=== PATIENT | female | born 1985 | race Caucasian/White ===

== ENCOUNTER 2022-02-03 17:42 | Inpatient (IN) | payer MEDICAID, SELFPAY ==
[2022-02-03] VITALS (14 sets, daily range): BP systolic 115–142; BP diastolic 59–82; PULSE 66–98; RESP 16; TEMP 37.2; O2SAT 98
--- NOTE | 2022-02-03 17:22 | P.LDBA_ITS ---
Subjective History of Present Illness Date Seen: 02/03/22 Narrative: Patient is being admitted to Labor and Delivery for early labor with a history of precipitous deliveries. She is a 36 year old at 39.4 weeks gestation. Her full history and physical was dictated by LOLITA Pete on 01/16/2022. Please see this for details. 1.? AMA? Maternity T21: negative, boy.? AFP at 16 weeks: neg ? Level 2 ultrasound: completed 2.? Subchorionic hemorrhage X 2 3. Covid positive 07/31/21. Out of quarantine 08/08/21. ? ? ? 32wk US 12/13/21: Vtx, SDP 6.7cm, EFW 2311 g, 5 lb 2 oz, 90%.? BPD 96%, HC 81%, AC ? 97%, FL 37% ? ? ? 36 week growth US ordered on 12/13/2021: Vtx, SDP 8.7, EFW 3108g 6#14oz, 80%. BPD 85%, HC 84%, AC 94%, FL 19% OB - H&P: Exam Physical Exam: Vital signs: Pulse BP 74 141/68 H 02/03/22 17:04 02/03/22 17:04 Constitutional: Constitutional: no acute distress Routine HEENT Exam: Head: Present normal inspection Routine Neck Exam: Neck: Present full ROM Routine Cardiovascular Exam: Cardiovascular: RRR Routine Abdominal Exam: Abdominal: Present soft Detailed Labor and Delivery Exam: Patient Gravid: yes Dilation (cm): 3 Effacement (%): 75 Cervix position: mid Consistency: soft Contraction frequency (min): 3 (2-3) Tachysystole: No Contraction intensity: Strong/Firm Fetus (Single): Station: -3 Heart Rate Baseline: 135 Monitor Accelerations: Present Monitor Decelerations: None Community [employer] Actor Variability: Moderate (11-25) (6-25) Routine Extremities Exam: Extremities: Present full ROM Routine Back/Spine/Pelvis Exam: Back/Spine: full ROM Routine Neurological Exam: Present alert and oriented X3 Routine Psychiatric Exam: Present normal affect and normal thought process OB - Problem Based A/P Additional Plan (1) Active labor at term: Status: Acute Plan ASSESSMENT:? at 39.4 weeks gestation? GBS negative? Uncomplicated ? Elevated BP on admit. Repeat BP WNL? Early labor at term ?? PLAN:? 1. Desires water . Consent signed. Hep C negative.? 2. Candidate for analgesia of choice. Planning unmedicated .? 3. Continue to monitor blood pressures. 4. Anticipate ? 5. Expectant management at this time.? 6. IV not needed at this time. OK to place PRN. 7. Monitoring per unit policy. Delivery/Labor/Induction Plan Plan: expectant management
[2022-02-03] MEDS: OXYTOCIN 10 UNIT/ML INJ IM (18:18)
[2022-02-03] MEDS: miSOPROStoL 800 MCG/4 TABLET PR (18:49)
[2022-02-03 19:10] LABS: SARS PCR* Negative SARS-CoV-2 (Negative)
[2022-02-03] MEDS: LIDOCAINE 1 % PF 30 ML INJECTION (19:30)
--- NOTE | 2022-02-03 19:56 | P.OBPRC_ITS ---
Procedure Delivery date: 02/03/22 Procedure Done: Global Events: Meconium Stained Fluid (light meconium) and AMA Intrapartal Events: Precipitous Labor <3 Hrs Delivery monitor: external FHT and external uterine Route of delivery: Episiotomy description: None Laceration description: Perineal - 2nd Degree Delivery repair: Vicryl Estimated blood loss (mL): 75 Anesthesia type: None Disposition: floor Narrative: Patient is a 36 year-old G3 now P3 admitted on Dec 30, 2021 at 23:40 at 39 Weeks, 4 Days gestation for early labor.? Cervical exam on admission was 3 cm/75 % effaced/-3 station with membranes intact in vertex presentation.? Contractions were every 2-3 minutes.? heart rate demonstrated baseline 135 bpm with moderate variability, + accelerations, - decelerations; a category 1 tracing.? SROM occurred at 1739 with light meconium fluid.?Pediatric provider was notified of meconium fluid but did not make it to the hospital in time for the delivery. ?? Labor Analgesia:? None? ?? Pitocin:? Yes IM injection after delivery only? ?? Labor onset:? 1650? ?? Complete:? 1800? ?? Pushing:? 1802? ?? heart tones during second stage were category 1.? ?? At 1810 a viable male infant delivered in vertex presentation over intact perineum via spontaneous vaginal delivery.? Infant was placed on maternal abdomen.? Cord was clamped and cut after a >5min delay.? Nose and mouth were bulb suctioned.? Infant weight pending.? 8 at 1 minute and 9 at 5 minutes.? Shoulder dystocia: no.? Nuchal cord: no.? ?? Placenta delivered spontaneously and complete at 1914 with a 3 vessel cord.?At [address] Sung was notified that the placenta was not delivered. She ordered for placement of 800 mg rectal Cytotec and if still not delivered by 1910 she would come evaluate. Placenta did delivery spontaneously with trailing membranes. Placenta and membranes appear intact and felt to have come completely. ?? Mother and infant were stable after delivery.? ?? Lacerations:? 2nd degree, repaired with 2.0 Vicryl.? ?? Blood loss: 75 mL.? Blood loss measurement type: QBL 50ml in drape and EBL 25ml in the tub? Sponge and needles counts are correct.? [place] Gender: Male presentation: vertex Placental Delivery Description: Spontaneous (Over 1 jefferson for placenta delivery but delivered spontaneously) Cord Description: 3 Vessels total score - 1 minute: 8 total score - 5 minute: 9 OB Vag Delivery Procedures Additional Procedures Laceration Repair: Yes
[2022-02-04 00:28] VITALS: BP 109/73; PULSE 86; RESP 16; TEMP 37.2; O2SAT 96
[2022-02-04 02:24] VITALS: BMI 32.7
[2022-02-04 04:16] VITALS: BP 104/70; PULSE 85; RESP 16; TEMP 36.9; O2SAT 96
[2022-02-04 07:57] VITALS: BP 111/72; PULSE 94; RESP 16; TEMP 36.7; O2SAT 96
--- NOTE | 2022-02-04 12:10 | PM.OBDSVD1 ---
DS: Providers Provider Date Seen: 02/04/22 Date of admission: 02/03/22 17:42 Primary care physician: Not a Local Provider Admitting Clinician: Jennifer Salcedo CNM Attending Physician on discharge: Nancy Mulligan CNM Date of Discharge: 02/04/22 DS: Diagnosis Discharge Diagnosis (1) Status post vaginal delivery: Status: Acute Exam Const: Vital Signs, click to edit/add: Vital Signs - 24 hr 02/03/22 17:04 02/03/22 17:33 02/03/22 18:57 Temperature Pulse Rate 74 66 75 Pulse Rate [Pulse Oximeter] Respiratory Rate Blood Pressure 141/68 H 124/80 140/79 H Blood Pressure [Le ft Arm] Pulse Oximetry Oxygen Delivery [facility] 02/03/22 19:12 02/03/22 19:27 02/03/22 19:42 Temperature Pulse Rate 74 74 77 Pulse Rate [Pulse Oximeter] Respiratory Rate Blood Pressure 124/66 132/71 142/82 H Blood Pressure [Le ft Arm] Pulse Oximetry Oxygen Delivery [facility] 02/03/22 19:57 02/03/22 20:13 02/03/22 20:27 Temperature Pulse Rate 81 92 78 Pulse Rate [Pulse Oximeter] Respiratory Rate Blood Pressure 131/61 128/59 L 135/60 Blood Pressure [Le ft Arm] Pulse Oximetry Oxygen Delivery [facility] 02/03/22 20:42 02/03/22 20:44 02/03/22 20:57 Temperature Pulse Rate 81 98 Pulse Rate [Pulse Oximeter] Respiratory Rate Blood Pressure 134/60 115/62 Blood Pressure [Le ft Arm] Pulse Oximetry 98 Oxygen Delivery [facility] 02/03/22 21:12 02/03/22 19:42 02/03/22 20:42 Temperature Pulse Rate Pulse Rate [Pulse Oximeter] Respiratory Rate 16 16 Blood Pressure 129/78 Blood Pressure [Le ft Arm] Pulse Oximetry Oxygen Delivery [facility] 02/03/22 19:27 02/03/22 19:57 02/03/22 20:12 Temperature 98.9 F Pulse Rate Pulse Rate [Pulse Oximeter] Respiratory Rate 16 16 16 Blood Pressure Blood Pressure [Le ft Arm] Pulse Oximetry Oxygen Delivery [facility] 02/03/22 20:27 02/03/22 21:12 02/03/22 20:57 Temperature Pulse Rate Pulse Rate [Pulse Oximeter] Respiratory Rate 16 16 16 Blood Pressure Blood Pressure [Le ft Arm] Pulse Oximetry Oxygen Delivery Me thod 02/04/22 00:28 02/04/22 04:16 02/04/22 07:57 Temperature 98.9 F 98.5 F 98.1 F Pulse Rate Pulse Rate [Pulse Oximeter] 86 85 94 Respiratory Rate 16 16 16 Blood Pressure Blood Pressure [Le ft Arm] 109/73 104/70 111/72 Pulse Oximetry 96 96 96 Oxygen Delivery Me thod Room Air Room Air Room Air Documenting provider has reviewed patient's vital signs: yes Common normals: no apparent distress, oriented x3, no limitations, healthy appearing, alert and well nourished HENMT: Common normals: normocephalic Head and scalp: normocephalic Eye: Common normals: PERRL and EOMs intact bilaterally Pupil: PERRL Neck & C-Spine: Common normals: full ROM and supple Chest: Common normals: inspection of chest normal Other: Breast exam: deferred Resp: Common normals: normal respiratory effort, no retractions and clear to auscultation bilaterally Auscultation: clear to auscultation bilaterally Cardio: Common normals: regular rate and regular rhythm Rate: regular rate Rhythm: regular rhythm GI: Common normals: Normal to inspection, nondistended, normoactive bowel sounds present, soft to palpation and non-tender Palpation: soft : Uterus: U/1 Lochia: small Back & Pelvis: Common normals: thoracic and lumbar spine normal to inspection and thoraco-lumbar ROM normal Extremity: Common normals: normal to inspection and full ROM Neuro: Common normals: oriented x3, moves all extremities and gait normal Sensorium/orientation: alert Psych: Common normals: mental status grossly normal, affect normal, speech normal and activity/motor behavior normal Speech: normal speech Skin: Common normals: no rashes or lesions noted General skin exam: no rashes or lesions noted OB - DS: Summary Hospital Course Hospital Course: The patient is a 36 year old G 3 P 3 at 39 5/7 weeks gestation that was admitted to the Center on 02/03/22 for spontaneous labor. She had an uncomplicated vaginal delivery. She delivered a viable male infant. She is breast feeding. the patient has done well. Peripartum Data Infant delivery method: Vaginal Laceration description: Perineal - 2nd Degree complications: none Infant Gender: Male Time Spent with Patient Time attestation: Total time spent providing and/or coordinating discharge services: Discharge Plan Discharge Disposition: Home, Self-Care Date of Admission: 02/03/22 17:42 Attending Provider on Discharge: Nancy Mulligan Primary Care Provider: Provider,Not a Local Condition: Stable Anticipated Discharge Date/Time: 02/04/22 19:30 Discharge Medications: New acetaminophen 500 mg Tablet 1,000 mg PO Q6H PRNQty: 0 0RF docusate sodium 100 mg Capsule 100 mg PO DAILY Qty: 90 0RF ibuprofen 600 mg Tablet 600 mg PO Q6H PRNQty: 60 0RF Lanolin (HPA) 100 % Cream 1 applic topical Q1H PRNQty: 0 0RF Continued docosahexaenoic acid 200 mg capsule 200 cap PO DAILY prenat.vits,nicki,dev-joyd-vldxj Tablet 1 tab PO QDAY Discharge Orders: Discharge Order (Routine); Ordered 02/04/22 Ordered By: Nancy Mulligan Patient Education: OB Vaginal/Breast Feeding Activity Restrictions/Additional Instructions: Discharge instructions were reviewed with the patient including signs and symptoms of infection and home going medications. Lifting Restrictions: n/a Off Work or School for 6 weeks. Symptoms to report to doctor: -Bleeding that saturates more than one pad per hour ?-Passing clots larger than the size of a golf ball ?-Pain not relieved by prescribed medication ?-Fever above 100.4 degrees Fahrenheit ?-A foul vaginal odor ?-Difficulty in emotions, mood and functions ?-Thoughts of hurting yourself and/or ?-Painful, reddened area in your breast ?-Any drainage, redness or tenderness in your IV/epidural site ?-Severe headache that doesn't improve after taking medications ?-Changes in vision, including temporary loss of vision, blurred vision, and/or light sensitivity ?-Upper abdominal pain (usually under ribs on the right side) ?-Decrease in urination or painful, frequent urinating ?-Chest pain ?-Shortness of breath ?-Tenderness or pain with redness and/swelling in the calf(s) of your leg Follow Up with [facility] in 2 and 6 weeks . consultation services are available to all mothers and babies for the first year after delivery.? To make an appointment, please call [phone]. Activity Level: No Restrictions Follow Up Appointments: [facility] [Provider Group] (2 and 6 weeks ) Forms: [employer] Info Instructions
[2022-02-04 12:50] VITALS: BP 109/70; PULSE 79; RESP 16; TEMP 36.6; O2SAT 96
[2022-02-04 16:09] VITALS: BP 114/80; PULSE 80; RESP 14; TEMP 36.7
[2022-02-04] MEDS: TETANUS/DIPHTH/PERTUSSIS 0.5 ML SYRINGE IM (20:13)
== END 2022-02-04 21:35 | disposition home or self-care (01) | DRG 807 ==
LOC: OB OUT 17:43 → OB 17:43
PROVIDERS: Admitting Provider Advanced Practice Midwife; Visit Provider Advanced Practice Midwife
DX: O77.0 Labor and delivery complicated by meconium in amniotic fluid (principal); Z37.0 Single live birth; O70.1 Second degree perineal laceration during delivery; Z86.16 Personal history of COVID-19; Z3A.39 39 weeks gestation of pregnancy
CPT/HCPCS: 36415; 85018; 87635; 88307; 90715; A9270; J2001; J2590

== ENCOUNTER 2022-02-17 16:22 | Outpatient (CLI) | payer MEDICAID, SELFPAY | END 2022-02-17 16:23 | disposition home or self-care (01) | LOC: NFLDREF 02-21 13:36 | PROVIDERS: Visit Provider Advanced Practice Midwife | DX: Z39.2 Encounter for routine postpartum follow-up (principal) | CPT/HCPCS: 87086 ==

== ENCOUNTER 2023-08-31 10:46 | Outpatient (CLI) | payer MEDICAID, SELFPAY ==
--- NOTE | 2023-08-31 11:00 | US_ITS ---
Patient: RENATO PAREKH Facility:?[facility] Patient ID:?[id number] Site Patient ID:?[id number]. Site :?[id number] Study:?US-OB Pelvis OB TV-08/31/2023 11:53:44 AM Ordering Physician:?VARUN NIÑO Final Report: INDICATION: First trimester scan, establish dates. COMPARISON: None. TECHNIQUE: Real-time marquez-scale imaging of the pelvis was performed. FINDINGS: Sonographic imaging demonstrates a single living intrauterine gestation. The embryo demonstrates a regular cardiac rate measuring 121 beats per minute. The embryo`s crown-rump length measurement of 0.5 cm corresponds to a gestational age of 6 weeks 2 days with a sonographic due date of 04/23/2024. There is a normal-appearing yolk sac. There are no gross abnormalities noted within the embryo at this early state of development. The gestational sac has a normal appearance. There is no evidence of a perigestational hemorrhage. The amount of fluid within the sac appears appropriate for gestational age. The cervix is closed. The myometrium appears normal. The ovaries are of normal size. Corpus luteal cyst left ovary. There are no suspicious fluid collections noted in the cul-de-sac. IMPRESSION: Normal first trimester OB ultrasound exam. Gestational age calculated at 6 weeks 2 days with a sonographic due date of 04/23/2024. Dictated by Mendoza Roberson MD @ 08/31/2023 1:14:14 PM Signed by:?Mendoza Roberson MD @08/31/2023 1:14:14 PM (Electronic Signature)
== END 2023-08-31 10:47 | disposition home or self-care (01) ==
LOC: US 10:47
PROVIDERS: Visit Provider Advanced Practice Midwife
DX: Z34.91 Encounter for supervision of normal pregnancy, unspecified, first trimester (principal); O09.521 Supervision of elderly multigravida, first trimester; Z3A.01 Less than 8 weeks gestation of pregnancy
CPT/HCPCS: 76817; 84443; 86703; 86706; 86803; 86850; 86900; 86901; 87086; 87340

== ENCOUNTER 2023-08-31 14:12 | Outpatient (CLI) | payer MEDICAID, SELFPAY | END 2023-08-31 14:13 | disposition home or self-care (01) | PROVIDERS: Visit Provider Advanced Practice Midwife | DX: Z34.91 Encounter for supervision of normal pregnancy, unspecified, first trimester (principal); Z3A.01 Less than 8 weeks gestation of pregnancy | CPT/HCPCS: 84443; 86592; 86703; 86704; 86706; 86762; 86787; 86803; 86850; 86900; 86901; 87086; 87340 ==

== ENCOUNTER 2023-09-18 12:08 | Outpatient (CLI) | payer MEDICAID, SELFPAY ==
[2023-09-18 18:54] LABS: Chlamydia DNA Amplified* NOT DETECTED (No Detected); GC DNA Amplified* NOT DETECTED (No Detected)
== END 2023-09-18 12:09 | disposition home or self-care (01) ==
LOC: NFLDREF 12:08
PROVIDERS: Visit Provider Obstetrics & Gynecology
DX: Z11.3 Encounter for screening for infections with a predominantly sexual mode of transmission (principal)
CPT/HCPCS: 87491; 87591

== ENCOUNTER 2023-11-10 16:48 | Outpatient (CLI) | payer MEDICAID, SELFPAY | END 2023-11-10 16:49 | disposition home or self-care (01) | LOC: NFLDREF 16:50 | PROVIDERS: PCP Advanced Practice Midwife; Visit Provider Advanced Practice Midwife | DX: O09.522 Supervision of elderly multigravida, second trimester (principal); Z3A.16 16 weeks gestation of pregnancy | CPT/HCPCS: 81511 ==

== ENCOUNTER 2024-02-09 17:15 | Outpatient (CLI) | payer MEDICAID, SELFPAY ==
--- OUTSIDE RECORDS SUMMARY | 2024-02-16 03:25 | XMS_ITS | Encounter Summary ---
Author Organization [facility] Address [address] [place] [id number] Care Team Providers Care Door To Door Salesman Name Role Phone No Ref-Primary, Physician Primary Care Provider Encounter Details Date Type Department Care Team (Latest Contact Info) Description 12/08/2023 Travel Social History Tobacco Use Types Packs/Day Years Used Date Smoking Tobacco: Never Assessed Adolescent Education Answer Date Record ed Getting School Help Needed Not on file 11/30 Estimated Date of Delivery Comme nts Yes 04/23/2024 Based on Ultraso und Sex and Gender Information Value Date Recorded Sex Assigned at Not on file Gender Identity Not on file Sexual Orientation Not on file documented as of this encounter Plan of Treatment Not on file documented as of this encounter Visit Diagnoses Not on filedocumented in this encounter Care Teams Door To Door Salesman Relationship Specialty Start Date End Date No Ref-Primary, Physician PCP - General 11/16/23 documented as of this encounter
--- OUTSIDE RECORDS SUMMARY | 2024-02-16 03:25 | XMS_ITS | Encounter Summary ---
Author Organization [facility] Address [address] [place] [address]. [place] [address] Care Team Providers Care Business Solutions Director Name Role Phone Unavailable Primary Care Provider Unavailabl e Encounter Details Date Type Department Care Team ([facility] st Contact Info) Description 11/10/[address] [facility] [address] [place] [address] Scan, Non-Provider Social History Tobacco Use Types Packs/Day Years Used Date Smoking Tobacco: Never Assessed Sex and Gender Information Value Date Recorded Sex Assigned at Not on file Gender Identity Not on file Sexual Orientation Not on file documented as of this encounter Plan of Treatment Not on file documented as of this encounter Visit Diagnoses Not on filedocumented in this encounter
--- OUTSIDE RECORDS SUMMARY | 2024-02-16 03:25 | XMS_ITS | Referral Summary ---
Author Organization [facility] Address [address] [place] [address] Care Team Providers Care Wool Hanker Name Role Phone No Ref-Primary, Physician Primary Care Provider Encounters Date Type Department Care Team Description 12/08/2023 Travel 12/08/2023 2:45 PM CDT Office Visit [facility] Maternal Medicine [place] [address] [place] [phone] Abril Galeas CNM Burn, Martina, MD Multigravida of advanced maternal age in second trimester (Primary Dx) 12/08/2023 2:15 PM CDT - 12/08/2023 11:59 PM CDT Hospital Encounter [facility] [address] [place] [phone] Abril Galeas CNM Burn, Martina, MD related condition, antepartum Discharge Disposition: Home or Self Care 12/01/2023 PRE VISIT [facility] [address] [place] [phone] Renee Yeung RN Ultrasound (L2-AMA) from Last 3 Months Social History Tobacco Use Types Packs/Day Years Used Date Smoking Tobacco: Never Assessed Adolescent Education Answer Date Record ed Getting School Help Needed Not on file 11/30 Estimated Date of Delivery Comme nts Yes 04/23/2024 Based on Ultraso und Sex and Gender Information Value Date Recorded Sex Assigned at Not on file Gender Identity Not on file Sexual Orientation Not on file Plan of Treatment Not on file Procedures Procedure Name Priority Date/Time Associated Diagnosis Comments [facility] US COMPREHENSIVE SINGLE Routine 12/08/2023 2:59 PM CDT related condition, antepartum from Last 3 Months Results * [facility] US Comprehensive Single (12/08/2023 2:59 PM CDT) Anatomical Region Laterality Modality Ultrasound 12/08/2023 2:16 PM CDT Impressions 12/08/2023 4:08 PM CDT IMPRESSION ----- 1. Kendall at 20w 3d gestational age. 2. No anomalies commonly detected by ultrasound were identified in the detailed anatomic survey within the limits of ultrasound. 3. Growth parameters and estimated weight were consistent with gestational age predicted by assigned TIANA. 4. The amniotic fluid volume appeared normal. 5. On transabdominal imaging the cervix appeared long and closed. Narrative 12/08/2023 4:08 PM CDT ?Comprehensive ----- Pat. Name: IZABELLAJORGE ? Study Date: ??12/08/2023 2:16pm Pat. NO: ??[id number] ?Referring ??MD: ABRIL GALEAS Site: ??[facility] ? Brush Clearer Surveying: Conrad De Paz RDMS : ??1985 ?Age: ?? 38 ----- INDICATION ----- Advanced Maternal Age. Low risk NIPT. METHOD ----- Transabdominal ultrasound examination. View: Sufficient ----- Kendall . Number of fetuses: 1 DATING ----- ? Date ?Details ?Gest. age ?TIANA Prior assessment ? 08/31/2023 ? GA: 6 w + 2 d ?20 w + 3 d ? 04/23/2024 U/S ? 12/08/2023 ?based upon AC, BPD, Femur, HC ? 21 w + 2 d ? 04/17/2024 Assigned dating ?Dating performed on 12/08/2023, based on the prior assessment (on 08/31/2023) ?20 w + 3 d ? 04/23/2024 GENERAL EVALUATION ----- Cardiac activity present. FHR 151 bpm. movements present. Presentation cephalic. Placenta Posterior, No Previa, > 2 cm from internal os. Umbilical cord 3 vessel cord. Amniotic fluid Amount of AF: normal. MVP 5.0 cm. BIOMETRY ----- Main Biometry: BPD ?50.3 ?mm ? 21w 2d ?Hadlock OFD ?68.9 ?mm ? 21w 3d ?Nicolaides HC ?191.4 ?mm ?21w 3d ?Hadlock Cerebellum tr ?21.0 ? mm ?20w 0d ?Nicolaides AC ?164.9 ?mm ?21w 4d ?79% ?Hadlock Femur ?35.0 ? mm ?21w 0d ?Hadlock Humerus ?33.4 ?mm ? 21w 2d ?Renato Weight Calculation: EFW ? 415 ? g ? 88% ?Hadlock EFW (lb,oz) ? 0 lb 15 ? oz EFW by ?Hadlock ([id number]) Head / Face / Neck Biometry: Microwave Oven Assembler ? 6.8 ? mm CM ?2.7 ? mm Nasal bone ? 7.6 ? mm Nuchal fold ? 4.0 ? mm ANATOMY ----- The following structures appear normal: Head / Neck ? Cranium. Head size. Head shape. Lateral ventricles. Choroid plexus. Midline falx. Cavum septi pellucidi. Cerebellum. Cisterna magna. ? Parenchyma. Thalami. Vermis. ? Neck. Nuchal fold. Face ? Lips. Profile. Nose. Maxilla. Mandible. Orbits. Lens. Heart / Thorax ?4-chamber view. RVOT view. LVOT view. Situs. Aortic arch view. Bicaval view. Ductal arch view. Superior vena cava. Inferior vena cava. 3-vessel ? view. 1-iyskuy-xklreef view. Cardiac position. Cardiac size. Cardiac rhythm. ? Right lung. Left lung. Diaphragm. Abdomen ? Abdominal wall. Cord insertion. Stomach. Kidneys. Bladder. Liver. Bowel. Genitals. Spine ?Cervical spine. Thoracic spine. Lumbar spine. Sacral spine. Extremities / Skeleton ?Right arm. Right hand. Left arm. Left hand. Right leg. Right foot. Left leg. Left foot. Gender: male. MATERNAL STRUCTURES ----- Cervix ?Visualized ? Appearance: Appears Closed ? Cervical length 45.9 mm Right Ovary ?Visualized Left Ovary ?Visualized RECOMMENDATION ----- Thank-you for referring your patient for a comprehensive ultrasound. I discussed the findings on today's ultrasound with the patient. I reviewed the limitations of ultrasound both in detecting aneuploidy and structural abnormalities. Ultrasound can routinely detect 80-90% of structural abnormalities. She had low risk cell free DNA for genetic screening this . Further ultrasound studies as clinically indicated. Return to primary provider for continued care. If you have questions regarding today's evaluation or if we can be of further service, please contact the [facility]. anomalies may be present but not detected I spent a total of 15 minutes on the date of this encounter including preparing to see the patient (reviewing medical records/tests), counseling and discussing the plan of care, documenting the visit in the electronic medical record, and communicating with other health memory care program resident and/or care coordination. Procedure Note Una Cortez MD - 12/08/2023 Comprehensive ----- Pat. Name: JORGE PAREKH Study Date: 12/08/2023 2:16pm Pat. NO: [id number] Referring MD: ABRIL GALEAS Site: [facility] Brush Clearer Surveying: Conrad De Paz RDMS : 1985 Age: 38 ----- INDICATION ----- Advanced Maternal Age. Low risk NIPT. METHOD ----- Transabdominal ultrasound examination. View: Sufficient ----- Kendall . Number of fetuses: 1 DATING ----- DateDetailsGest. age TIANA Prior assessment 08/31/2023 GA: 6 w +2 d20 w + 3 d 04/23/2024 U/S 12/08/2023ased upon AC, BPD, Femur, HC21 w + 2 d 04/17/2024 Assigned dating Dating performed on 12/08/2023, based onthe prior assessment (on 08/31/2023) 20 w + 3 d1 GENERAL EVALUATION ----- Cardiac activity present. FHR 151 bpm. movements present. Presentation cephalic. Placenta Posterior, No Previa, > 2 cm from internal os. Umbilical cord 3 vessel cord. Amniotic fluid Amount of AF: normal. MVP 5.0 cm. BIOMETRY ----- Main Biometry: BPD 50.3 mm21w 2d Hadlock OFD 68.9 mm21w 3d Nicolaides HC 191.4 mm21w 3d Hadlock Cerebellum tr 21.0 mm20w 0d Nicolaides AC 164.9 mm21w 4d 79% Hadlock Femur 35.0 mm21w 0d Hadlock Humerus 33.4 mm21w 2d Renato Weight Calculation: EFW 415 g88% Hadlock EFW (lb,oz) 0 lb 15 oz EFW by Hadlock ([id number]) Head / Face / Neck Biometry: Microwave Oven Assembler 6.8 mm CM 2.7 mm Nasal bone 7.6 mm Nuchal fold 4.0 mm ANATOMY ----- The following structures appear normal: Head / Neck Cranium. Head size. Head shape.Lateral ventricles. Choroid plexus. Midline falx. Cavum septi pellucidi.Cerebellum. Cisterna magna. Parenchyma. Thalami. Vermis. Neck. Nuchal fold. Face Lips. Profile. Nose. Maxilla.Mandible. Orbits. Lens. Heart / Thorax 4-chamber view. RVOT view. LVOT view.Situs. Aortic arch view. Bicaval view. Ductal arch view. Superior venacava. Inferior vena cava. 3-vessel view. 7-rwakfd-sahmyvk view.Cardiac position. Cardiac size. Cardiac rhythm. Right lung. Left lung.Diaphragm. Abdomen Abdominal wall. Cord insertion.Stomach. Kidneys. Bladder. Liver. Bowel. Genitals. Spine Cervical spine. Thoracic spine.Lumbar spine. Sacral spine. Extremities / Skeleton Right arm. Right hand. Left arm. Lefthand. Right leg. Right foot. Left leg. Left foot. Gender: male. MATERNAL STRUCTURES ----- Cervix Visualized Appearance: Appears Closed Cervical length 45.9 mm Right Ovary Visualized Left Ovary Visualized RECOMMENDATION ----- Thank-you for referring your patient for a comprehensive ultrasound. I discussed the findings on today's ultrasound with the patient. Ireviewed the limitations of ultrasound both in detecting aneuploidy andstructural abnormalities. Ultrasound can routinely detect 80-90% of structural abnormalities. She had low riskcell free DNA for genetic screening this . Further ultrasound studies as clinically indicated. Return to primary provider for continued care. If you have questions regarding today's evaluation or if we can be [facility], please contact the [facility]. anomalies may be present but not detected I spent a total of 15 minutes on the date of this encounter includingpreparing to see the patient (reviewing medical records/tests), counselingand discussing the plan of care, documenting the visit in the electronic medical record, andcommunicating with other health memory care program resident and/or carecoordination. IMPRESSION ----- 1. Kendall at 20w 3d gestational age. 2. No anomalies commonly detected by ultrasound were identified inthe detailed anatomic survey within the limits of prenatalultrasound. 3. Growth parameters and estimated weight were consistent withgestational age predicted by assigned TIANA. 4. The amniotic fluid volume appeared normal. 5. On transabdominal imaging the cervix appeared long and closed. Abril Galeas CNM [facility] US ORDERABLE S from Last 3 Months Care Teams Wool Hanker Relationship Specialty Start Date End Date No Ref-Primary, Physician PCP - General 11/16/23
--- OUTSIDE RECORDS SUMMARY | 2024-02-16 03:25 | XMS_ITS | Encounter Summary ---
Author Organization [facility] Address [facility] [place] [address] Care Team Providers Care Residential Therapist Name Role Phone No Ref-Primary, Physician Primary Care Provider Reason for Visit * Reason Comments Ultrasound L2-AMA Encounter Details Date Type Department Care Team (Late st Contact Info) Description 12/08/2023 2:45 PM CDT Office Visit [facility] [place] [address] [facility] [address] [place] [address] Gisele Galeas, [facility] [address] [place], [place] [id number] Una Cortez MD [address] [facility] [address] [place] [address] Multigravida of advanced maternal age in second trimester (Primary Dx) Social History Tobacco Use Types Packs/Day Years [...] on file documented as of this encounter Progress Notes * Una Cortez MD - 12/08/2023 2:45 PM CDT Please see Imaging tab under Chart Review for details of today's visit. Una Cortez documented in this encounter Plan of Treatment Not on file documented as of this encounter Visit Diagnoses Diagnosis Multigravida of advanced maternal age in second trimester- Primary documented in this encounter Care Teams Residential Therapist Relationship Specialty Start Date End Date No Ref-Primary, Physician PCP - General 11/16/23 documented as of this encounter
--- OUTSIDE RECORDS SUMMARY | 2024-02-16 03:25 | XMS_ITS | Encounter Summary ---
Author Organization [facility] Address [address] [place] [address] Care Team Providers Care Rfid Manager Name Role Phone Unavailable Primary Care Provider Unavailabl e Reason for Referral * Diagnostic Imaging Ultrasound (Routine) - Pending Review Specialty Diagnoses / Procedures Referred By Contac t Referred To Contact Radiology. Diagnoses related condition, antepartum Procedures [facility] US Comprehensive Single Abril Galeas CNM [address] [address] Referral ID Status Reason Start Date Expiration Date V isits Requested Visits Authorized [id number] Pending Review 11/11/2023 11/10/2024 1 1 * Consultation (Routine: Next available opening) - Pending Review Specialty Diagnoses / Procedures Referred By Contac t Referred To Contact Diagnoses related condition, antepartum Abril Galeas CNM [facility] [address] [place] [address] [facility] [address] [facility] [facility] [address] [place] [address] Referral ID Status Reason Start Date Expiration Date V isits Requested Visits Authorized [id number] Pending Review 11/11/2023 11/10/2024 1 1 Question Answer Preferred Location: [facility] [address] TIANA 04/23/2024 Ultrasound Comprehensive US (>than 18 weeks GA) US PROC NONE MFM Issue Advanced Maternal Age *MUST request Genetic Counseling MFM MD Consultation (unrelated to Ultrasound findings): No Inflammatory Bowel Disease Clinic: Joint MFM and GI Consultation: No Chronic Kidney Disease: Joint MFM and Nephrology Consultation No Genetic Counseling Consultation: No fax [facility] Abril Galeas [phone] Comments AMA Encounter Details Date Type Department Care Team (Latest Contact Info) Description 11/11/[address] [facility] [address] [facility] [address] [place] [address] Abril Galeas CNM [facility] [address] [place] [address] related condition, antepartum (Primary Dx) Social History Tobacco Use Types Packs/Day Years Used Date Smoking Tobacco: Never Assessed Sex and Gender Information Value Date Recorded Sex Assigned at Not on file Gender Identity Not on file Sexual Orientation Not on file documented as of this encounter Plan of Treatment Scheduled Referrals Name Type Priority Associated Diagnoses Orde r Schedule Mat Med Ctr Referral - Referral Routine: Next available opening related condition, antepartum Expected: 11/21/2023 (Approximate), Expires: 05/09/2024 documented as of this encounter Results * [facility] US Comprehensive Single (12/08/2023 2:59 PM [...] 4:08 PM CDT ?Comprehensive ----- Pat. Name: JORGE PAREKH ? Study Date: ??12/08/2023 2:16pm Pat. NO: ??[id number] ?Referring ??MD: ABRIL GALEAS Site: ??[facility] ? Engineer Process: Conrad De Paz RDMS : ??1985 ?Age: [...] Biometry: BPD ?50.3 ?mm ? 21w 2d ?Hadarcelia OFKonstantin ?68.9 ?mm ? 21w 3d ?Nicolaides HC ?191.4 ?mm ?21w 3d ?Hadlock Cerebellum tr ?21.0 ? mm ?20w 0d ?Nicolaides AC ?164.9 ?mm ?21w 4d ?79% ?Hadlock Femur ?35.0 ? mm ?21w 0d ?Hadlock Humerus ?33.4 ?mm ? 21w 2d ?Renato Weight Calculation: EFW ? 415 ? g ? 88% ?Hadlock EFW (lb,oz) ? 0 lb 15 ? oz EFW by ?Hadlock ([id number]) Head / Face / Neck Biometry: Financial Services Intern ? 6.8 ? mm CM ?2.7 ? [...] cava. Inferior vena cava. 3-vessel ? view. 6-obkvdj-hrxityb view. Cardiac position. Cardiac size. Cardiac rhythm. [...] medical record, and communicating with other health rn care transition and/or care coordination. Procedure Note Una Cortez MD - 12/08/2023 Comprehensive ----- Pat. Name: JORGE PAREKH Study Date: 12/08/2023 2:16pm Pat. NO: [id number] Referring MD: ABRIL GALEAS Site: [facility] Engineer Process: Conrad De Paz RDMS : 1985 Age: [...] 0 lb 15 oz EFW by Hadlock ([id number]) Head / Face / Neck Biometry: Financial Services Intern 6.8 mm CM 2.7 mm Nasal bone [...] Superior venacava. Inferior vena cava. 3-vessel view. 2-nfhqds-xnmveco view.Cardiac position. Cardiac size. Cardiac rhythm. Right [...] today's evaluation or if we can be offurther service, please contact the [facility] Center. anomalies may be present but not detected I spent a total of 15 minutes on the date of this encounter includingpreparing to see the patient (reviewing medical records/tests), counselingand discussing the plan of care, documenting the visit in the electronic medical record, andcommunicating with other health rn care transition and/or carecoordination. IMPRESSION ----- 1. Kendall at 20w 3d gestational age. 2. No anomalies commonly detected by ultrasound were identified inthe detailed anatomic survey within the limits of prenatalultrasound. 3. Growth parameters and estimated weight were consistent withgestational age predicted by assigned TIANA. 4. The amniotic fluid volume appeared normal. 5. On transabdominal imaging the cervix appeared long and closed. Abril Galeas CNM [facility] US ORDERABLE S documented in this encounter Visit Diagnoses Diagnosis related condition, antepartum- Primary related condition, antepartum documented in this encounter
--- OUTSIDE RECORDS SUMMARY | 2024-02-16 03:25 | XMS_ITS | Encounter Summary ---
Author Organization [facility] Address [address] [place] [address] Care Team Providers Care Pharmacist Hospital Name Role Phone No Ref-Primary, Physician Primary Care Provider Reason for Referral * Diagnostic Imaging Ultrasound (Routine) - Pending Review Specialty Diagnoses / Procedures Referred By Contac t Referred To Contact Radiology. Diagnoses related condition, antepartum Procedures [facility] US Comprehensive [facility] Abril Galeas [address] [address] Referral ID Status Reason Start Date Expiration Date V isits Requested Visits Authorized [id number] Pending Review 11/11/2023 11/10/2024 1 1 Reason for Visit * Diagnostic Imaging Ultrasound (Routine) - Pending Review Specialty Diagnoses / Procedures Referred By Contac Referred To Contact Radiology. Diagnoses related condition, antepartum Procedures [facility] US Comprehensive [facility] Abril Galeas [facility] [address] [place] [address] Referral ID Status Reason Start Date Expiration Date V isits Requested Visits Authorized [id number] Pending Review 11/11/2023 11/10/2024 1 1 Encounter Details Date Type Department Care Team (Latest Contact Info) Description 12/08/2023 2:15 PM CDT - 12/08/2023 11:59 PM CDT Hospital Encounter [facility] M[facility] Medicine [facility] [place] [address] [facility] [address] [place] [address] Abril Galeas CNM [facility] [address] [place] [address] Una Cortez MD [address] [place] [address] related condition, antepartum Discharge Disposition: Home or Self Care Social History Tobacco Use Types Packs/Day Years [...] on file documented as of this encounter Procedures Procedure Name Priority Date/Time Associated Diagnosis Comments [facility] US COMPREHENSIVE SINGLE Routine 12/08/2023 2:59 PM CDT related condition, antepartum documented in this encounter Results * [facility] US Comprehensive Single (12/08/2023 2:59 PM [...] ? Study Date: ??12/08/2023 2:16pm Pat. NO: ??[id number] ?Referring ??MD: ABRIL GALEAS Site: ??[facility] ? Biotechnologist: Conrad De Paz RDMS : ??1985 ?Age: [...] lb 15 ? oz EFW by ?Hadlock ([id number]) Head / Face / Neck Biometry: Agricultural And Forestry Supervisor ? 6.8 ? mm CM ?2.7 ? [...] cava. Inferior vena cava. 3-vessel ? view. 2-xgrwvz-aawtuvt view. Cardiac position. Cardiac size. Cardiac rhythm. [...] medical record, and communicating with other health care team assistant and/or care coordination. Procedure Note Una Cortez MD - 12/08/2023 Comprehensive ----- Pat. Name: JORGE PAREKH Study Date: 12/08/2023 2:16pm Pat. NO: [id number] Referring MD: ABRLI GALEAS Site: [facility] Biotechnologist: Conrad De Paz RDMS : 1985 Age: 38 ----- INDICATION ----- Advanced Maternal Age. Low risk NIPT. METHOD ----- Transabdominal ultrasound examination. View: Sufficient ----- Kendall . Number of fetuses: 1 DATING ----- DateDetailsGest. age TIANA Prior assessment 08/31/2023 GA: 6 w +2 d20 w + 3 d 04/23/2024 U/S 4based upon AC, BPD, Femur, HC21 w + [...] 0 lb 15 oz EFW by Hadlock ([id number]) Head / Face / Neck Biometry: Agricultural And Forestry Supervisor 6.8 mm CM 2.7 mm Nasal bone [...] Superior venacava. Inferior vena cava. 3-vessel view. 0-ktwyvf-jybhgny view.Cardiac position. Cardiac size. Cardiac rhythm. Right [...] electronic medical record, andcommunicating with other health care team assistant and/or carecoordination. IMPRESSION ----- 1. Kendall at [...] this encounter Visit Diagnoses Diagnosis related condition, antepartum documented in this encounter Care Teams Pharmacist Hospital Relationship Specialty Start Date End Date No Ref-Primary, Physician PCP - General 11/16/23 documented as of this encounter
--- OUTSIDE RECORDS SUMMARY | 2024-02-16 03:25 | XMS_ITS | Encounter Summary ---
Author Organization [facility] Address [address] [place] [address] Care Team Providers Care Gasoline Power Shovel Operator Name Role Phone No Ref-Primary, Physician Primary Care Provider Reason for Visit * Reason Comments Ultrasound L2-AMA Encounter Details Date Type Department Care Team (Late st Contact Info) Description 12/01/2023 PRE VISIT [facility] Maternal Medicine Center [place] [address] [facility] [address] [place] [address] Renee Yeung, DEREK Ultrasound (L2-AMA) Social History Tobacco Use Types Packs/Day Years [...] on filedocumented in this encounter Care Teams Gasoline Power Shovel Operator Relationship Specialty Start Date End Date No Ref-Primary, Physician PCP - General 11/16/23 documented as of this encounter
--- OUTSIDE RECORDS SUMMARY | 2024-02-16 03:25 | XMS_ITS | Clinical Summary ---
Author Organization [facility] Address [address] [place] [id number] Care Team Providers Care Recordings Librarian Name Role Phone No Ref-Primary, Physician Primary Care Provider Encounters Date Type Department Care Team Description 12/08/2023 2:45 PM CDT Office Visit [facility] [address] [place] [phone] Abril Galeas CNM Burn, Martina, MD Multigravida of advanced maternal age in second trimester (Primary Dx) 12/08/2023 2:15 PM CDT - 12/08/2023 11:59 PM CDT Hospital Encounter [facility] [address] [place] [phone] Abril Galeas CNM Burn, Martina, MD related condition, antepartum Discharge Disposition: Home or Self Care 12/08/2023 Travel 12/01/2023 PRE VISIT [facility] [address] [place] [phone] Renee Yeung RN Ultrasound (L2-AMA) from Last [...] Orientation Not on file Plan of Treatment Health Maintenance Due Date Last Done Comments ADVANCE CARE PLANNING 1984 ANNUAL REVIEW OF HM ORDERS 1984 GLUCOSE 1984 YEARLY PREVENTIVE VISIT 1984 IPV IMMUNIZATION (2 of 3 - 4-dose series) 03/08/1986 02/08/1986 HIV SCREENING 1999 HEPATITIS C SCREENING 2002 HEPATITIS B IMMUNIZATION (2 of 3 - 3-dose series) 05/05/2003 04/07/2003 PAP 2005 COVID-19 Vaccine (3 - season) 2023 08/15/2020, 07/18/2020 PHQ-2 (once per calendar year) 2023 MATERNAL SCREENING DISCUSSION 09/26/2023 OBGCT (OB) 01/02/2024 INFLUENZA VACCINE (#1) 2024 2, 04/15/2010, 03/30/2010, Additional history exists RSV VACCINE ( & 60+) (1 - Risk 1-dose series) 03/06/2024 DTAP/TDAP/TD IMMUNIZATION (4 - Td or Tdap) 02/05/2032 02/04/2022, 10/14/2012, 02/08/1986 MENINGITIS IMMUNIZATION Aged Out 04/07/2003 No l onger eligible based on patient's age to complete this topic HPV IMMUNIZATION Aged Out No longer e ligible based on patient's age to complete this topic Pneumococcal Vaccine: Pediatrics (0 to 5 Years) and At-Risk Patients (6 to 64 Years) Aged Out No longer eligible based on patient's age to complete this topic RSV MONOCLONAL ANTIBODY Aged Out No l onger eligible based on patient's age to complete this topic Procedures Procedure Name Priority Date/Time Associated Diagnosis Comments [facility] US COMPREHENSIVE SINGLE Routine 12/08/2023 2:59 PM CDT related condition, antepartum from Last 3 Months Results * [facility] US Comprehensive Single (12/08/2023 2:59 PM [...] ? Study Date: ??12/08/2023 2:16pm Pat. NO: ??[id number] ?Referring ??: ABRIL GALEAS Site: ??[facility] ? Supervising Broker: Conrad De Paz RDMS : ??1985 ?Age: [...] lb 15 ? oz EFW by ?Hadlock ([id number]) Head / Face / Neck Biometry: Junior Linux Systems Administrator ? 6.8 ? mm CM ?2.7 ? [...] cava. Inferior vena cava. 3-vessel ? view. 5-seqvom-oimvksx view. Cardiac position. Cardiac size. Cardiac rhythm. [...] medical record, and communicating with other health infant caregiver and/or care coordination. Procedure Note Una Cortez MD - 12/08/2023 Comprehensive ----- Pat. Name: JORGE PAREKH Study Date: 12/08/2023 2:16pm Pat. NO: [id number] Referring MD: ABRIL GALEAS Site: [facility] Supervising Broker: Conrad De Paz RDMS : 1985 Age: [...] 0 lb 15 oz EFW by Hadlock ([id number]) Head / Face / Neck Biometry: Junior Linux Systems Administrator 6.8 mm CM 2.7 mm Nasal bone [...] Superior venacava. Inferior vena cava. 3-vessel view. 3-ziypde-lycjgdk view.Cardiac position. Cardiac size. Cardiac rhythm. Right [...] electronic medical record, andcommunicating with other health infant caregiver and/or carecoordination. IMPRESSION ----- 1. Kendall at 20w 3d gestational age. 2. No anomalies commonly detected by ultrasound were identified inthe detailed anatomic survey within the limits of prenatalultrasound. 3. Growth parameters and estimated weight were consistent withgestational age predicted by assigned TIANA. 4. The amniotic fluid volume appeared normal. 5. On transabdominal imaging the cervix appeared long and closed. Abril YUNM IMG MFM US ORDERABLE S from Last 3 Months Care Teams Recordings Librarian Relationship Specialty Start Date End Date No Ref-Primary, Physician PCP - General 11/16/23
== END 2024-02-09 17:16 | disposition home or self-care (01) ==
LOC: NFLDREF 02-16 03:22
PROVIDERS: Visit Provider Advanced Practice Midwife
DX: Z34.93 Encounter for supervision of normal pregnancy, unspecified, third trimester (principal); Z3A.29 29 weeks gestation of pregnancy
CPT/HCPCS: 86592

== ENCOUNTER 2024-03-29 16:15 | Outpatient (CLI) | payer MEDICAID, SELFPAY ==
[2024-03-30 14:51] LABS: Strep B DNA Probe Negative (Negative)
[2024-03-30 14:58] LABS: Strep B Susceptibility Needed? No
== END 2024-03-29 16:16 | disposition home or self-care (01) ==
LOC: NFLDREF 16:15
PROVIDERS: Visit Provider Advanced Practice Midwife
DX: Z34.83 Encounter for supervision of other normal pregnancy, third trimester (principal)
CPT/HCPCS: 87081; 87653

== ENCOUNTER 2024-04-20 05:58 | Inpatient (IN) | payer MEDICAID, SELFPAY ==
[2024-04-20] VITALS (22 sets, daily range): BP systolic 109–139; BP diastolic 67–89; PULSE 73–103; RESP 18–20; TEMP 36.4–37.1; O2SAT 96–100; BMI 31.4
--- OUTSIDE RECORDS SUMMARY | 2024-04-20 04:38 | XMS_ITS | Clinical Summary ---
Author Organization [facility] Address [address] [place] [address] Care Team Providers Care Welfare Adviser Name Role Phone No Ref-Primary, Physician Primary Care Provider Social History Tobacco Use Types Packs/Day Years [...] 1984 GLUCOSE 1984 YEARLY PREVENTIVE VISIT 1984 HIV SCREENING 1999 HEPATITIS C SCREENING 2002 HEPATITIS B IMMUNIZATION (2 of 3 - 3-dose series) 05/05/2003 04/07/2003 PAP 2005 PHQ-2 (once per calendar year) 2023 MATERNAL SCREENING DISCUSSION 09/26/2023 OBGCT (OB) 01/02/2024 COVID-19 Vaccine ( season) 2024 08/15/2020, 07/18/2020 INFLUENZA VACCINE (#1) 2024 2, 04/15/2010, 03/30/2010, Additional history exists GROUP B STREP SCREENING 03/26/2024 DTAP/TDAP/TD IMMUNIZATION (4 - Td or Tdap) [...] patient's age to complete this topic RSV VACCINE (No Doses Required) Completed Care Teams Welfare Adviser Relationship Specialty Start Date End Date No Ref-Primary, Physician PCP - General 11/16/23
--- OUTSIDE RECORDS SUMMARY | 2024-04-20 04:38 | XMS_ITS | Referral Summary ---
Author Organization [facility] Address [address] [place] [address] Care Team Providers Care Pump Station Operator Name Role Phone No Ref-Primary, Physician [...] file Plan of Treatment Not on file Care Teams Pump Station Operator Relationship Specialty Start Date End Date No Ref-Primary, Physician PCP - General 11/16/23
[2024-04-20] MEDS: LACTATED RINGERS 1000 ML 1,000 ML IV (05:10)
--- NOTE | 2024-04-20 05:29 | W.PM.LDBA ---
Subjective History of Present Illness Date Seen: 04/20/24 Narrative: Jorge is being admitted to Labor and Delivery for active labor. She is a 38 year old at 39.4 weeks gestation. Her full history and physical was dictated by Chelsea Mulligan CNM on 04/05/24. Please see this for details. Jroge began feeling some contractions around 0200 but they were very irregular. She presented to L&D around 0500 with regular painful contractions. She was found to be 6cm at that time and was admitted. She is supported by her Kenn. She is coping well with contractions but strongly desires analgesia. BUSINESS INFO CONSULTANT is at the bedside discussing options given she is starting to feel pressure and has a history of precipitous deliveries. Specific Issues/Plans H&P completed 04/05/2024 by LOLITA Pete 1. Unplanned - (still BF her 18 months old) Dated by US 2. AMA MAT- 21 ordered: normal Level II [place]: Vtx, posterior placenta, no previa. 3 vessel cord. Normal fluid (MVP 5) EFW 88%. No abnormalities noted. 3. Enlarge Thyroid On new OB exam. TSH with reflex FT4 ordered: 1.25 (normal) 4. Hx of episiotomy with 1st 5. History of precipitous delivery -09/17 discussed w/ Dr. Sung possibility of 39 week IOL 6. Considering permanent sterilization, discuss further as progresses (see note 09/17) -federal consent signed and in chart -Consult with Dr. Ashley 04/12, surgical consent signed -Requests spinal anesthesia for PPTL TDAP: 03/22/2024 RSV: 04/07/2024 OB - Problem Based A/P Additional Plan (1) Pain during labor: Status: Acute (2) AMA (advanced maternal age) multigravida 35+: Status: Acute Plan ASSESSMENT:? at 39.4 weeks gestation? GBS negative? ?complicated by: AMA, enlarged thyroid, and history of precipitous delivery Labor type: spontaneous Blood type:?B+ ?? PLAN:? 1. Candidate for analgesia of choice. Planning unmedicated .? 2. Desires labor analgesia. Proceed with analgesia of choice in conjunction with BUSINESS INFO CONSULTANT. 3. Anticipate ? 4. Expectant management at this time.? 5. IV placed for analgesia. Continuos monitoring after intrathecal placement per policy. monitoring plan Delivery/Labor/Induction Plan Plan: expectant management OB Result Labs Blood Type: B (+) positive Rubella: nonimmune GBS Status: negative OB Exam Physical Exam Vital signs: Pulse BP Pulse Ox 85 139/86 100 04/20/24 05:13 04/20/24 05:13 04/20/24 05:25 Narrative: Psychiatric:? Alert and oriented x3? HEENT:? Normocephalic, atraumatic? Neck:? Supple without adenopathy or thyromegaly? Lungs:? Clear to auscultation bilaterally? Heart:? Regular rate and rhythm, no murmur, rub or gallop? Abdomen:? Soft, nontender, and gravid? Extremities:? No edema or erythema? Detailed Labor and Delivery Exam Patient Gravid: Yes Dilation (cm): 6 (per RN exam) Contraction Frequency: 2-3 Tachysystole: No Fetus (Single) Heart Rate Baseline: 135 Monitor Accelerations: Present Monitor Decelerations: None
[2024-04-20] MEDS: fentaNYL 100 MCG/2 ML inj 25 MCG INTRATHECA (05:31)
--- NOTE | 2024-04-20 05:35 | P.ANBPRC_ITS ---
[facility] Medical History History of kidney stones ?Z87.442 - Personal history of urinary calculi (ICD-10) History of COVID-19 ?Z86.16 - Personal history of COVID-19 (ICD-10) ?Z34.90 - Encounter for supervision of normal , unspecified, unspecified trimester (ICD-10) Surgical History Status post vaginal delivery History of wisdom tooth extraction ?K08.409 - Partial loss of teeth, unspecified cause, unspecified class (ICD- 10) Social History Narrative: SOCIAL Education: Some College Work: Stays at home Partner: Markus Lives with: Supportive lives together. Pets: 2 cats ( indoor and does not change litter) Abuse: Denies past/present Special Diet: Vegetarian Ok with a blood transfusion: yes Culture or anabaptism beliefs: denies RISK FACTORS Exercise Times/wk: Walks 2-3 miles/ dly Hx of Depression and/or Anxiety/other mood disorder: undiagnosed anxiety. Will reach out with worsening symptoms Seat Belt Use: Routinely Smoking: Denies past/present Alcohol/day: Denies while Caffeine: Was drinking 3 cups a day, but not anymore Drug Use: Denies past/present Chicken Pox: Yes as a child MRSA: Denies What is your current living situation?: I presently have a place to live Problems where you live: no known problems In the past 12 months, utilities in danger of being shut off: no In past 12 months, lack of transportation kept you from medical appts, meetings, work, or getting things needed for daily living: no In the past 12 mos, have been you worried that your food would run out before you had money to buy more?: never true In the past 12 mos, the food you bought just didn't last and you didn't have money to buy more?: never true Smoking Status: Never smoker How often does anyone, including family, friends and others, physically hurt you : never How often does anyone, including family, friends and others, insult or talk down to you: never How often does anyone, including family, friends and others, threaten you with harm: never How often does anyone, including family, friends and others, scream or curse at you: never Little interest or pleasure in doing things: not at all Feeling down, depressed, or hopeless: not at all Meds Home Medications and Allergies Home Medications ?Medication ?Instructions ?Recorded ?Confirmed ?Type prenat.vits,nicki,wmo-noqj-bbwgo 1 tab PO QDAY 01/03/22 04/19/24 History Allergies Allergy/AdvReac Type Severity Reaction Status Date / Time [place] Meal AdvReac Intermediate Itch throat Uncoded 04/19/24 16:34 Eggs or Egg-derived Products AdvReac Intermediate GI upset Uncoded 04/19/24 16:34 Peanut-containing Drug AdvReac Intermediate Itchy Uncoded 04/19/24 16:34 Products throat Results Vital Signs Vital Signs: Last Vital Signs Pulse 85 04/20/24 05:13 BP 139/86 04/20/24 05:13 Pulse Ox 100 04/20/24 05:30 Anesthesia Procedures Intrathecal Patient Location: OB Start Time: 05:15 Stop Time: 05:35 Start Date: 04/20/24 Stop Date: 04/20/24 Reason for Block: procedure for pain Patient Position: sitting Performed By: Christopher Alstno Preanesthetic Checklist: IV checked, risks and benefits discussed, monitors and equipment checked, pre-op evaluation, timeout performed and anesthesia consent Prep: chlorhexidine gluconate Monitoring: blood pressure monitoring, continuous pulse oximetry and heart rate Approach: midline Vertebral Space: lumbar (1-5) Needle Type: Pencan Injection Technique: single-shot Needle gauge: 25 Needle Length (cm): 10 cm
[2024-04-20] MEDS: OXYTOCIN 30 unit/500 ML in NS 30 UNIT/500 ML BAG 300 UNIT IVPB (06:15)
--- NOTE | 2024-04-20 06:58 | W.PM.OBVAGDE ---
OB Procedure Vag Delivery Mother Details Mother Details: The patient is a 38 year-old, 4, Para 3, admitted on 04/20/24 at 39.4Days gestation. : 4 Para: 4 Weeks Gestation: 39.4 Admission Date: 04/20/24 Additional Details Amniotic Membrane Status: SROM Amniotic Membrane Rupture Date: 04/20/24 Amniotic Membrane Rupture Time: 05:20 Amniotic Membrane Fluid Description: Meconium Stained (thin stained. Not noted until delivery of the fetus. Clear prior to that time.) Analgesia/Anesthesia Type: Intrathecal Waterbirth: No Pitcoin: Yes ([facility]TS[facility] only) Intrapartal Events: None Labor Onset: 02:00 Complete: 05:49 Pushin:38 (spontaneously pushing, complete confirmed after ) Heart: heart tones during second stage were category 2. Variable decelerations noted with pushing and rapid descent. Good return to baseline with accelerations present. Three minute decrease noted to the 90's with until delivery. Delivery Details Delivery Date: 04/20/24 Delivery Time: 06:02 Route of delivery: Infant Gender: Male Infant Viability: Alive; Heart Rate Present Delivery Details: Patient was admitted for active labor and progressed normally. SROM noted at [ ] with clear fluid. Patient was assumed complete with spontaneous pushing at 0538 and was confirmed complete at 0549. of a viable male squatting with the bar in the bed. Vertex delivered OA. No nuchal cord or shoulder. Body delivered easily and without incident. passed to mothers abdomen with a vigorous cry. Cord was clamped and cut at > 5 minutes. APGARS were 8 at one minute and 9 at five minutes respectively. Mouth was bulb suctioned. Intact placenta with a 3 vessel cord delivered spontaneously at 0614. Fundus firm. 2nd degree laceration identified and repaired in typical fashion. QBL 100 cc. Mother and baby stable; mother plans to breastfeed. weight pending.? 1 Minute Interval Total Score: 8 5 Minute Interval Total Score: 9 Additional Details Shoulder Dystocia: No Placenta Delivery Time: 06:14 Placental Delivery Description: Spontaneous Delivery repair: Vicryl Procedure Done: Global Blood Loss: 100 Laceration: Perineal - 2nd Degree Episiotomy Description: None Blood Loss Measurement Type: QBL Bakri Used: No Sponge/Need Count Correct: Yes Cord Vessel Description: 3 Vessels Event Summary Status: Mother and infant were stable after delivery. Disposition: floor
--- NOTE | 2024-04-20 13:48 | PM.ANPOST ---
Post Anesthesia Note Post Anesthesia Note Patient seen: Inpatient Respiratory Status: adequate Cardiovascular Status: adequate Mental Status: baseline Pain: adequate Temp: baseline Anesthetic awareness: N/A Complications: none Follow care: none
[2024-04-21] VITALS (14 sets, daily range): BP systolic 110–134; BP diastolic 65–91; PULSE 65–90; RESP 12–18; TEMP 36.3–36.8; O2SAT 97–100
[2024-04-21] MEDS: LACTATED RINGERS 1000 ML 1,000 ML IV (07:47)
--- NOTE | 2024-04-21 08:08 | P.PCN_ITS ---
Procedure Note Time Seen by Provider: 09:59 Date Seen: 04/21/24 Date of procedure: 04/21/[address] [facility] bill your pro fee for this procedure?: Yes Pre-op diagnosis: Undesired fertility Post-op diagnosis: same Procedure: Preoperative diagnosis: 38-year-old 4 now para 4 who desires permanent sterilization, day 1. Postoperative diagnosis: Same. Procedure: Mini laparotomy with bilateral salpingectomy Anesthesia: Spinal Surgeon: Gabriela Heard MD [place] Fertility Specialist: Not applicable EBL: 5 mL Urine output: 50 mL clear urine IVF: 600 ml Specimen: Bilateral fallopian tubes to pathology. Findings: The fundus was noted to be 1 cm below the umbilicus. The uterus, bilateral fallopian tubes and ovaries all appeared normal. Procedure: The patient was taken to the operating room where spinal anesthetic was found to be adequate. She was placed in the dorsal supine position and an exam under anesthesia was performed with findings stated above. She was then prepped and draped in a normal sterile manner. A Tan catheter was then placed. 4 mL of 0.5% Marcaine without epinephrine were injected underneath the skin prior to incision. A 5 cm partially circular incision was made inferior to the umbilicus. This was carried through to the underlying layer of fascia using bipolar cautery. The fascia was identified, grasped with 2 Anat clamps and divided with a Armas scissors. This incision was extended laterally with Armas scissors. The peritoneum was identified and entered bluntly. A small Mikie, self-retaining retractor was placed. portion of the procedure. The patient was placed in a slight Trendelenburg position. The right ovary was grasped and brought to the incision. The fallopian tube was identified and grasped with 2 Toby clamps. The fallopian tube was removed by performing serial pedicles with the hand-held LigaSure dissecting forceps. The fallopian tube was removed from the uterus at the cornual aspect. Excellent hemostasis was noted. The left fallopian tube was identified, grasped, and removed in a similar manner. Again excellent hemostasis noted. The fascia was reapproximated using 0 Vicryl in a running manner. The subcutaneous tissue was irrigated with a small amount of saline and bipolar cautery used to obtain hemostasis. 4 interrupted sutures of 3-0 plain gut were placed in the subcutaneous tissue to prevent space. The skin was reapproximated using 4-0 Monocryl and a running subcuticular manner. Exofin adhesive gel and an adhesive bandage were then applied. The Tan catheter was removed prior to the patient being moved to recovery room. The patient tolerated this procedure well. Sponge, lap and instrument counts were correct x2 at the end of the procedure and the patient was taken to the recovery area in stable condition.
--- NOTE | 2024-04-21 08:08 | W.PM.H&PU ---
History & Physical Update History & Physical Update H&P Reviewed and patient assessed: The following changes are noted below H&P Updates: The patient is day #1 from a vaginal delivery.
--- NOTE | 2024-04-21 08:09 | P.DS_ITS ---
DS: Providers Provider Date Seen: 04/21/24 Date of admission: 04/20/24 05:58 Primary care physician: Not a Local Provider Admitting Clinician: Jennifer Salcedo CNM Attending Physician on discharge: Caleb MCHUGH APRN Date of Discharge: 04/21/24 DS: Diagnosis Discharge Diagnosis (1) AMA (advanced maternal age) multigravida 35+: Status: Acute (2) (normal spontaneous vaginal delivery): Status: Acute (3) Status post tubal ligation: Status: Acute (4) care and examination of lactating mother: Status: Acute Exam Narrative: Exam Narrative: GENERAL APPEARANCE:? normal affect, alert, no distress MOOD:? appropriate ABDOMEN:? soft, non-tender the uterine fundus is cm At Umbilicus, Midline and is appropriate for the stage of recovery. EXTREMITIES:? normal and minimal edema Const: Vital Signs, click to edit/add: Vital Signs - 24 hr 04/20/24 08:17 04/20/24 12:16 04/20/24 15:47 Temperature 98.7 F Pulse Rate 96 Pulse Rate [Blood Pressure Cuff] 87 98 Respiratory Rate 18 Blood Pressure 109/73 Blood Pressure [Ri ght Arm] 116/74 119/74 Pulse Oximetry 97 Oxygen Delivery Me thod Room Air Room Air 04/20/24 21:18 04/20/24 23:36 04/21/24 03:36 Temperature 98.0 F 97.5 F L Pulse Rate Pulse Rate [Blood Pressure Cuff] 103 H 97 88 Respiratory Rate 18 20 16 Blood Pressure Blood Pressure [Ri ght Arm] 128/89 128/84 123/74 Pulse Oximetry 97 96 97 Oxygen Delivery Me thod Room Air Room Air Room Air OB - DS: Summary Hospital Course Hospital Course: Jorge is a 38 y.o. G 4 P 4004 who was admitted to L & D for active labor.? She had a NVD that was uncomplicated. The patient feels well.? The pain is well controlled with current medications.? She has no new complaints.? She is having a PP tubal ligation this morning. She is breast feeding and reports things are going well. the patient has done well.? Vitals have been stable.? She has remained afebrile.? Has a good appetite, is tolerating a general diet.? She is voiding without difficulty.? She is passing gas and has not had a bowel movement.? She is ambulating and denies any dizziness.? Has small amount of ru bra lochia. Discharge home with baby post recovery from PPTL when all criteria met per policy.? Follow up in 2 weeks and 6 weeks.? , may see if needed? Hgb 12.2. ? ? Labs WNL or stable with trending? Peripartum Data delivery method: Vaginal Laceration description: Perineal - 2nd Degree Procedures: Procedures Operation Date: 04/21/24 08:30 <No data on this case meets the specified criteria> complications: none [place] Gender: Male Discharge Plan: Home Status at Discharge Overall status at discharge: patient is progressing back to baseline Time Spent with Patient Time attestation: Total time spent providing and/or coordinating discharge services: Time spent: Less than 30 minutes Discharge Plan Discharge Disposition: Home, Self-Care Date of Admission: 04/20/24 05:58 Attending Provider on Discharge: Martha Pop Primary Care Provider: Provider,Not a Local Condition: Stable Anticipated Discharge Date/Time: 04/21/24 17:00 Discharge Medications: New acetaminophen 500 mg Tablet 1,000 mg PO Q6H PRNQty: 100 0RF docusate sodium 100 mg Capsule 100 mg PO DAILY Qty: 60 0RF ibuprofen 600 mg Tablet 600 mg PO Q6H PRNQty: 60 0RF Continued prenat.vits,nicki,lrl-pozo-wwpth Tablet 1 tab PO QDAY Discharge Orders: Discharge Order (Routine); Ordered 04/21/24 Ordered By: Martha Pop Patient Education: OB [place] Care, OB Vaginal/Breast Feeding Additional Instructions: Discharge instructions were reviewed with the patient including signs and symptoms of infection and home going medications Nothing vaginally for 6 weeks: no tampons or intercourse Do not drive while taking narcotic pain medication(s) Off Work or School for 6 weeks Symptoms to report to doctor: * Bleeding that saturates more than one pad per hour * Passing clots larger than the size of a golf ball * Pain not relieved by prescribed medication * Fever above 100.4 degrees Fahrenheit * A foul vaginal odor * Difficulty in emotions, mood, and functions * Thoughts of hurting yourself and/or * Painful, reddened area in your breast * Any drainage, redness, or tenderness in your IV/epidural site * Severe headache that doesn't improve after taking medications * Changes in vision, including temporary loss of vision, blurred vision, and/or light sensitivity * Upper abdominal pain (usually under ribs on the right side) * Decrease in urination or painful, frequent urinating * Chest pain * Shortness of breath * Tenderness or pain with redness and/swelling in the calf(s) of your leg 2-week visit: discuss feeding concerns, review control options and screen for anxiety/depression. 6-week visit for an annual exam. consultation services are available to all mothers and babies for the first year after delivery.? To make an appointment, please call [phone]. For pain control of perineum, breast and pelvic pain, take 600 mg Ibuprofen every 6 hours as needed by mouth or 1000 mg acetaminophen (Tylenol) every 6 hours by mouth as needed. You can alternate these so you are taking something every 3 hours as needed. A heating pad can also be used for your abdomen or breasts.? Activity Level: Activity as Tolerated Discharge Diet: Regular Follow Up Appointments: [facility] [Provider Group] Forms: Analyze Reealth Info Instructions
[2024-04-21] MEDS: BUPIVACAINE 0.5% 30 ML INJECTION (09:42)
--- NOTE | 2024-04-21 09:58 | W.ANESCHARGE ---
Anesthesia Charges Start Date/Time Anesthesia Start Date: 04/21/24 Anesthesia Start Time: 08:56 Stop Date/Time Anesthesia Stop Date: 04/21/24 Anesthesia Stop Time: 09:55
--- NOTE | 2024-04-21 10:35 | SUR.PHASEI ---
patient met discharge criteria per anesthesia
[2024-04-21] MEDS: IBUPROFEN 600 MG TABLET PO (10:43)
--- NOTE | 2024-04-21 13:09 | PM.OBPNVD1 ---
OB - PN:Subj Subjective Date Seen: 04/21/24 Narrative: Jorge is a 38 yo s/p bilateral tubal ligation pending discharge. The patient feels well.? The pain is well controlled with current medications.? She has no new complaints.? Urinary output is adequate and she is voiding without difficulty.? Has a good appetite, is tolerating a general diet, is passing flatus, and has not had a bowel movement.? Has scant amount of rubra lochia.? She is ambulating well. She is and reports it is going well.? OB - PN: Obj Exam Physical Exam: Vital signs: Temp Pulse Resp BP Pulse Ox O2 Del Method 97.5 F L 74 16 124/79 98 Room Air 04/21/24 11:00 04/21/24 11:00 04/21/24 11:00 04/21/24 11:00 04/21/24 11:00 04/21/24 11:00 Narrative: GENERAL APPEARANCE:? normal affect, alert, no distress MOOD:? appropriate ABDOMEN:? soft, non-tender the uterine fundus is At Umbilicus, Midline and is appropriate for the stage of recovery. PERINEUM:? mild edema of the perineum, there is a Perineal Laceration,?superficially no longer approximated, but is hemostatic. No sign of infection. EXTREMITIES:? normal and minimal edema Incision: Surgical dressing intact with no sign of drainage OB - PN: A/P Delivery Assessment and Plan (1) AMA (advanced maternal age) multigravida 35+: Status: Acute (2) (normal spontaneous vaginal delivery): Status: Acute (3) Status post tubal ligation: Problem details: bilateral salpingectomy Status: Acute (4) care and examination of lactating mother: Status: Acute Plan P: Discharge to move forward. Though perineal laceration is no longer approximated, it fall together well in natural positions and has maintained hemostasis. No further repair is necessary. Signs and symptoms to report reviewed. Dr Rousseau Rx Oxycodone. Pt to cook pickled meat and use minimally to prevent constipation. Stool softeners as needed. Pt agrees with plan.
--- NOTE | 2024-04-21 15:42 | PC.NURSE ---
shift note: vss stable. pt up indept in room. IV dc'd intact Lt upper FA. Reviewed dc instructions and copies sent with pt. belongings sent with pt at dc.
--- OUTSIDE RECORDS SUMMARY | 2024-04-22 15:05 | XMS_ITS | Clinical Summary ---
Author Organization [facility] Address [address] [place] [id number] Care Team Providers Care Commercial Underwriter Name Role Phone No Ref-Primary, Physician Primary [...] VACCINE (No Doses Required) Completed Care Teams Commercial Underwriter Relationship Specialty Start Date End Date No Ref-Primary, Physician PCP - General 11/16/23
--- OUTSIDE RECORDS SUMMARY | 2024-04-22 15:05 | XMS_ITS | Referral Summary ---
Author Organization [facility] Address [address] [place] [id number] Care Team Providers Care Director Of Market Analysis Name Role Phone No Ref-Primary, Physician Primary [...] of Treatment Not on file Care Teams Director Of Market Analysis Relationship Specialty Start Date End Date No Ref-Primary, Physician PCP - General 11/16/23
== END 2024-04-21 15:52 | disposition home or self-care (01) | DRG 798 ==
LOC: OB OUT 05:59 → OB 06:03
PROVIDERS: Obstetrics & Gynecology; Admitting Provider Advanced Practice Midwife; Visit Provider Advanced Practice Midwife
PROC: (CPT 58605; principal; 2024-04-21 08:15)
DX: O99.284 Endocrine, nutritional and metabolic diseases complicating childbirth (principal); E04.9 Nontoxic goiter, unspecified; Z37.0 Single live birth; O77.0 Labor and delivery complicated by meconium in amniotic fluid; O70.1 Second degree perineal laceration during delivery; Z30.2 Encounter for sterilization; Z3A.39 39 weeks gestation of pregnancy
CPT/HCPCS: 00851; 01967; 86592; 88302; G0463; A9270; J0665; J2371; J3010; J7120